=== PATIENT | female | born 1950 | race Caucasian/White ===

== ENCOUNTER → 2019-06-25 08:47 | Outpatient (BNVA) | payer MEDICARE, OTHER, SELFPAY | PROVIDERS: Family Provider Family Medicine; PCP Family Medicine; Visit Provider Otolaryngology | DX: J32.9 Chronic sinusitis, unspecified (principal); R09.82 Postnasal drip; J34.2 Deviated nasal septum; R49.0 Dysphonia; J38.1 Polyp of vocal cord and larynx | CPT/HCPCS: 96372; 99214; J3301 ==

== ENCOUNTER → 2020-03-04 08:23 | Outpatient (BNVA) | payer MEDICARE, OTHER, SELFPAY | PROVIDERS: Family Provider Family Medicine; PCP Family Medicine; Referring Provider Dermatology; Visit Provider Dermatology | DX: Z12.83 Encounter for screening for malignant neoplasm of skin (principal); L57.0 Actinic keratosis; B35.1 Tinea unguium; D18.01 Hemangioma of skin and subcutaneous tissue; I83.93 Asymptomatic varicose veins of bilateral lower extremities; L91.8 Other hypertrophic disorders of the skin; H02.009 Unspecified entropion of unspecified eye, unspecified eyelid | CPT/HCPCS: 17000; 17003; 99203 ==

== ENCOUNTER 2020-04-03 09:13 | Emergency (ER) | payer MEDICARE, OTHER, SELFPAY ==
[2020-04-03 09:29] VITALS: BP 135/72; PULSE 91; RESP 16; TEMP 36.8; O2SAT 99; BMI 21.1
[2020-04-03 09:46] VITALS: BP 135/72; PULSE 93; PULSE 97; RESP 18; O2SAT 98
--- NOTE | 2020-04-03 09:56 | ED_ITS ---
HPI - Extremity Problem General: Chief complaint: Extremity Injury, Upper Stated complaint: Pain in left arm History of Present Illness: HPI Narrative: 69 old female left elbow pain lateral epicondyle. She hurt it she thinks about 3 weeks ago but she is not entirely sure his finger and progressively worse radiates to her hand.. Worsens with use radiates down to the hand. No radiation proximal. There is no injury that she can recall. Associated symptoms: Deny chest pain, fever(s) or rash Review of Systems Const: Denies: fever(s), chills, body aches, change in appetite, fatigue or malaise ENMT: Denies: throat pain, ear or mastoid pain, nasal discharge or nasal congestion Card: Denies: chest pain, edema, dyspnea on exertion or orthopnea Resp: Denies: dyspnea, productive cough or non-productive cough GI: Denies: abdominal pain, nausea, vomiting, hematemesis, coffee ground e mesis, diarrhea, constipation, bloating, hematochezia or melena : Denies: flank pain, difficulty voiding, dysuria, urinary frequency or urinary urgency Skin/Breast: Denies: rash or pruritus PFSH ED PFSH: Family History Mother Diabetes Other CHF (congestive heart failure), NYHA class I Dementia Social History Smoking and tobacco status: never smoked Alcohol intake: never Physical Exam Const: COMMON NORMALS: no acute distress GENERAL APPEARANCE: cooperative and comfortable ORIENTATION/CONSCIOUSNESS: Yes awake, Yes oriented to person, Yes oriented to place and Yes oriented to time HENMT: COMMON NORMALS: normocephalic, atraumatic and hearing grossly normal bilaterally HEAD & SCALP: normocephalic and atraumatic Neck/C-Spine: COMMON NORMALS: no JVD Cardio: COMMON NORMALS: no JVD, regular rate, regular rhythm and No murmurs present (Cardio) RATE: regular rate RHYTHM: regular rhythm Extremity: COMMON NORMALS: normal to inspection, capillary refill normal, no clubbing, cyanosis or edema, no calf tenderness and no pedal edema NARRATIVE EXTREMITY EXAM: Exquisite tenderness at the left lateral epicondyle. X-ray of the elbow is negative. 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 Neuro: SENSORIUM/ORIENTATION: Yes oriented to person, Yes oriented to place and Yes oriented to time Skin: COMMON NORMALS: no rashes or lesions noted GENERAL SKIN EXAM: no rashes or lesions noted Course Vital Signs: Vital signs: Vital Signs Temperature 97.6 F 04/03/20 11:35 Pulse Rate 79 04/03/20 11:35 Respiratory Rate 18 04/03/20 11:35 Blood Pressure 109/84 04/03/20 11:35 Pulse Oximetry 96 04/03/20 11:35 MDM - Extremity (Nontraumatic) MDM Narrative: Medical decision making narrative: Tennis elbow forearm band, anti-inflammatories ice avoid exacerbating injuries recheck in 1 week if not improving sooner if worsens Discharge Plan Discharge Patient Disposition: Home Clinical Impression: Epicondylitis, lateral, left Condition: Stable Prescriptions: New diclofenac sodium 75 mg tablet,delayed release (DR/EC) 75 mg PO Q12H PRN (Reason: pain) Qty: 20 RF: 0 No Action cyclobenzaprine 10 mg tablet 10 mg PO TID RF: 0 sertraline 50 mg tablet 50 mg PO Q24H RF: 0 fluticasone propionate 50 mcg/actuation spray,suspension 1 spray INTRANASAL BID RF: 0 cetirizine 10 mg tablet 5 mg PO DAILY RF: 0 multivitamin Tablet 1 tab PO QAM RF: 0 aspirin [Adult Low Dose Aspirin] 81 mg tablet,delayed release (DR/EC) 81 mg PO DAILY RF: 0 trazodone 100 mg tablet 100 mg PO .at bedtime RF: 0 ropinirole 0.5 mg tablet 0.5 mg PO BID RF: 0 simvastatin 20 mg tablet 20 mg PO .at bedtime RF: 0 Discharge Orders: Discharge Order (Routine); Ordered 04/03/20 Ordered By: Bacilio Ga Referrals: Axel Allan MD [Primary Care Provider] - Discharge Diet: Usual diet Discharge Activity: Increase activity as tolerated Activity Restrictions/Additional Instructions: Tennis elbow band to the left forearm wear while awake may take off at night. Follow-up with your doctor within 1 week. Discharge Date/Time: 04/03/20 11:37 Coding Level of Care Code ED Calender Roll Operator for Ritika Silveira
--- NOTE | 2020-04-03 09:56 | XRR_ITS ---
PROCEDURE INFORMATION: Exam: XR Left Elbow Exam date and time: 04/03/2020 9:56 AM Age: 69 years old Clinical indication: Pain; Elbow; Left TECHNIQUE: Imaging protocol: XR Left elbow. Views: 3 or more views. COMPARISON: No relevant prior studies available. FINDINGS: Bones/joints: Mild degenerative disease is present with tiny osteophyte formation on the proximal ulna. The joint spaces are not significantly narrowed. There is no fracture or other acute abnormality. Soft tissues: Normal. XR/XR elbow LT min 3V* [id number] IMPRESSION: Mild degenerative disease. No acute abnormality.
[2020-04-03 11:35] VITALS: BP 109/84; PULSE 79; RESP 18; TEMP 36.4; O2SAT 96
== END 2020-04-03 11:37 | disposition home or self-care (01) ==
PROVIDERS: Emergency Provider Family Medicine; PCP Family Medicine
DX: M77.12 Lateral epicondylitis, left elbow (principal); Z79.82 Long term (current) use of aspirin
CPT/HCPCS: 12345; 73080; 99281; 99282

== ENCOUNTER 2020-08-05 07:53 | Emergency (ER) | payer MEDICARE, OTHER, SELFPAY ==
[2020-08-05 07:55] VITALS: BP 126/77; PULSE 70; RESP 16; TEMP 36.4; O2SAT 98; BMI 21.1
[2020-08-05 08:04] VITALS: PULSE 86; RESP 14; O2SAT 100
--- NOTE | 2020-08-05 08:05 | ECG_ITS ---
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 Measurements Intervals [place] Rate: 64 P: 38 [place]: 144 QRS: 1 QRSD: 92 T: 44 QT: 386 QTc: 401 Interpretive Statements SINUS RHYTHM NONSPECIFIC T-WAVE ABNORMALITY No previous ECG available for comparison Electronically Signed On 08-05-2020 20:05:41 INCOME TAX RETURN PREPARER by Riley Lozoya M.D. [id number]
--- NOTE | 2020-08-05 08:08 | W.ED.SYNCOPE ---
HPI - Syncope General: Chief Complaint: Syncope Stated Complaint: SYNCOPAL EPISODE/ ABDOMINAL PAIN Time Seen by Provider: 08/05/20 07:54 History of Present Illness: HPI narrative: Patient is a 69-year-old female that presents via EMS for syncopal episode. Patient states that she was waiting for her to have an MRI completed when she started not feeling well, stating she had some belly pain and just did not feel right so she tried to walk out of the building to her vehicle when she states that her vision became narrowed and she feels like she passed out. She states she did fall to the ground. She is unsure if she hit her head but does not complain of a headache. She denies any musculoskeletal symptoms from the fall. She does states she has been dealing with some on and off abdominal pain for the past couple weeks. She states she feels like her stools have been darker for the last 4 days. She denies any history of GI bleed. She states she had a colonoscopy several years ago that was essentially normal. She does not take blood thinners. She denies any focal or visual deficits during examination. She denies any chest pain or shortness of breath during the syncopal episode. MD complaint: felt faint and collapsed Injuries sustained associated with event: none Associated symptoms: Reports abdominal pain; Deny chest pain, fever(s), headache(s), lightheadedness or nausea Review of Systems General: Reports: 10 or more systems reviewed and unremarkable except in HPI and below Const: Denies: fever(s) Eyes: Denies: blurry vision ENMT: Denies: nasal congestion Card: Reports: syncope; Denies: chest pain or lightheadedness Resp: Denies: dyspnea or productive cough GI: Reports: abdominal pain and change in bowel habits (Dark stools); Denies: nausea : Denies: dysuria or hematuria Musc: Denies: neck pain or back pain Skin/Breast: Denies: rash or new lesions Neuro: Denies: headache(s) Psych: Denies: anxiety Rodo/Lymph: Denies: easy bleeding, petechiae or purpura PFSH ED PFSH: Family History Mother Diabetes Other CHF (congestive heart failure), NYHA class I Dementia Social History Smoking and tobacco status: never smoked Alcohol intake: never Physical Exam Const: COMMON NORMALS: no acute distress, patient oriented x3, alert and well nourished HENMT: COMMON NORMALS: normocephalic, atraumatic, EAC's normal, TM's normal bilaterally and Normal external nose present HEAD & SCALP: normocephalic and atraumatic FACE & SINUS: normal facial exam and face symmetric NOSE: Normal external nose present EXTERNAL AUDITORY CANAL: EAC's normal TYMPANIC MEMBRANE: TM's normal bilaterally MOUTH: Normal oral and palatal mucosa present and moist mucous membranes abnormal Eye: COMMON NORMALS: Equal, round and reactive pupils present PUPIL: Yes Equal, round and reactive pupils present Neck/C-Spine: GENERAL: Yes normal visual inspection Chest: COMMONS NORMALS: normal inspection of the chest Resp: COMMON NORMALS: normal respiratory effort, No retractions, No use of accessory muscles and clear to auscultation bilaterally AUSCULTATION: clear to auscultation bilaterally Cardio: COMMON NORMALS: regular rate, regular rhythm, S1 normal heart sound present, S2 normal heart sound present and No murmurs present (Cardio) RATE: regular rate RHYTHM: regular rhythm HEART SOUNDS: S1 normal heart sound present and S2 normal heart sound present GI: COMMON NORMALS: Soft to palpation and No hepatosplenomegaly present INSPECTION: Yes normal to inspection AUSCULTATION: Yes normoactive bowel sounds PALPATION: Yes Soft to palpation and Yes No hepatosplenomegaly present RECTAL EXAM: deferred, visual inspection normal and No heme positive stool : COMMON NORMALS: Yes no CVA tenderness BLADDER/KIDNEY EXAM: Yes no CVA tenderness Back/Pelvis: COMMON NORMALS: no CVA tenderness Neuro: COMMON NORMALS: patient oriented x3 and moves all extremities SENSORIUM/ORIENTATION: Yes alert CRANIAL NERVES: Yes CN normal except as noted SPEECH: speech normal GAIT: Yes Normal gait present MOTOR EXAM: 5/5 motor strength present throughout Psych: COMMON NORMALS: mental status grossly normal Skin: COMMON NORMALS: no rashes or lesions noted GENERAL SKIN EXAM: no rashes or lesions noted Course Vital Signs: Vital signs: Vital Signs Temperature 97.6 F 08/05/20 07:55 Pulse Rate 63 08/05/20 10:02 Respiratory Rate 16 08/05/20 10:02 Blood Pressure 117/71 08/05/20 10:02 Pulse Oximetry 98 08/05/20 10:02 MDM - Syncope MDM Narrative: Medical decision making narrative: Patient remained stable in the ED. Her lab work, EKG and imaging are unremarkable. Her orthostatics are negative. Patient's stool guaiac is negative. Her abdominal exam is benign without guarding or tenderness. She has no focal neurological findings on exam. She feels well on reevaluation. She has been able to ambulate and walk without difficulty in the ED. Discussed with her that there does not appear to be an obvious cause of her syncopal episode. I would advise that she follow-up closely with her primary care doctor for Holter monitor for additional evaluation. We discussed that should her symptoms return or if she develops any new symptoms that she needs to return to the ED for additional evaluation at that time. She voiced understanding is agreeable to the plan of care. Lab Data: Labs: Lab Results 08/05/20 08/05/20 08/05/20 Range/Units 07:45 07:45 07:45 WBC 5.4 (4.0-10.0) 10^3/ uL RBC 4.02 L (4.1-5.3) 10^6/u L Hgb 12.4 (11.5-15.3) g/dL Hct 38.7 (37.0-47.0) % MCV 96.3 (81-99) fL MCH 30.8 (28.0-34.0) pg MCHC 32.0 (30.0-36.0) g/dL RDW 12.4 (12.1-15.1) % Plt Count 293 (130-400) 10^3/c mm MPV 10.6 H (7.4-10.4) fL Neut % (Auto) 65.1 % Lymph % (Auto) 23.6 % [place] % (Auto) 7.2 % Eos % (Auto) 3.0 % Baso % (Auto) 0.7 % Neut # (Auto) 3.50 (1.8-7.7) 10^3/u L Lymph # (Auto) 1.3 (0.8-4.8) 10^3/u L [place] # (Auto) 0.4 (0.2-0.9) 10^3/u L Eos # (Auto) 0.2 (0.0-0.8) 10^3/u L Baso # (Auto) 0.0 (0.0-0.1) 10^3/u L Nucleated RBC % (a uto) 0 % Nucleated RBCs # 0.0 /100WBC Sodium 139 (136-145) mmol/L Potassium 4.0 (3.5-5.1) mmol/L Chloride 105 (98-107) mmol/L Carbon Dioxide 29 (22-29) mmol/L Anion Gap 9.0 (5-19) BUN 15 (8-23) mg/dL Creatinine 0.9 (0.5-0.9) mg/dL GFR Calculation 61.9 L (90-130) mL/min Glucose 113 (65-115) mg/dL Calculated Osmolal ity 290 (285-295) mOsm/k g Calcium 9.2 (8.5-10.5) mg/dL Troponin T Gen 5 n g/L 6 (0-10) ng/L Discharge Plan Discharge Patient Disposition: Home Clinical Impression: Syncope Qualifiers: Syncope type: unspecified Qualified Code(s): R55 - Syncope and collapse Condition: Good Prescriptions: No Action cyclobenzaprine 10 mg tablet 10 mg PO TID RF: 0 sertraline 50 mg tablet 50 mg PO Q24H RF: 0 fluticasone propionate 50 mcg/actuation spray,suspension 1 spray INTRANASAL BID RF: 0 cetirizine 10 mg tablet 5 mg PO DAILY RF: 0 multivitamin Tablet 1 tab PO QAM RF: 0 aspirin [Adult Low Dose Aspirin] 81 mg tablet,delayed release (DR/EC) 81 mg PO DAILY RF: 0 trazodone 100 mg tablet 100 mg PO .at bedtime RF: 0 ropinirole 0.5 mg tablet 0.5 mg PO BID RF: 0 simvastatin 20 mg tablet 20 mg PO .at bedtime RF: 0 diclofenac sodium 75 mg tablet,delayed release (DR/EC) 75 mg PO Q12H PRN (Reason: pain) Qty: 20 RF: 0 Discharge Orders: Discharge ED (Routine); Ordered 08/05/20 Ordered By: August Corcoran Referrals: Axel Allan MD [Primary Care Provider] - Discharge Diet: Usual diet Discharge Activity: Limit activity as instructed Activity Restrictions/Additional Instructions: Go home and take it easy for the rest of the day. Follow-up with your primary care doctor in the next week. I think you need additional evaluation with a Holter monitor. Make sure you are drinking plenty of fluids. Return to the ED if your symptoms return or if you develop new symptoms. Coding Level of Care Code ED Wagon Winder for Ritika Fwmatthew Exam Comprehensive
--- NOTE | 2020-08-05 08:10 | PC.NURSE ---
Guaiac performed at bedside by Dr Corcoran and was negative.
[2020-08-05 08:13] VITALS: BP 114/65; BP 120/77; BP 123/71; PULSE 70; PULSE 71
--- NOTE | 2020-08-05 08:14 | CT_ITS ---
WS: [id number] CT HEAD TECHNIQUE: Noncontrast CT of the head obtained from the skullbase to the vertex. CLINICAL INFORMATION: syncope/fall COMPARISON: None. DLP: 718.[address] scans at [facility] use at least one of these dose optimization techniques: automat ed exposure control; mA and/or kV adjustment per patient size (includes targeted exams where dose is matched to clinical indication); or iterative reconstruction. FINDINGS: No evidence of intracranial hemorrhage or mass effect. Ventricular system and basal cisterns are mckeon nt. Mild small vessel changes with mild loss parenchymal volume loss. No extra-axial fluid collection s. No evidence of mass or mass effect. Normal rodriguez-white differentiation. Mucosal thickening right mastoid air cells. Dystrophic calcification along the anterior falx. CT/CT head wo con* [id number] IMPRESSION: 1. No evidence of intracranial hemorrhage or mass effect. 2. Mild small vessel changes. Mild parenchymal volume loss. 3. No acute intracranial findings.
[2020-08-05 08:15] LABS: Basophils % 0.7 %; Eosinophils # 0.2 10^3/uL (0.0-0.8); Hematocrit 38.7 % (37.0-47.0); Hemoglobin 12.4 g/dL (11.5-15.3); Lymphocytes # 1.3 10^3/uL (0.8-4.8); Lymphocytes % 23.6 %; Mean Corpuscular Hemoglobin 30.8 pg (28.0-34.0); Mean Corpuscular Volume 96.3 fL (81-99); Mean Platelet Volume 10.6 fL (7.4-10.4); Monocytes # 0.4 10^3/uL (0.2-0.9); Monocytes % 7.2 %; Neutrophils % 65.1 %; Nucleated Red Blood Cells % 0 %; Platelet Count 293 10^3/cmm (130-400); Red Blood Count 4.02 10^6/uL (4.1-5.3); Red Cell Distribution Width 12.4 % (12.1-15.1); White Blood Count 5.4 10^3/uL (4.0-10.0)
[2020-08-05] MEDS: sodium chloride 0.9% 1,000 ML 999 ML IV (08:17)
[2020-08-05 08:31] LABS: Blood Urea Nitrogen 15 mg/dL (8-23); Calcium 9.2 mg/dL (8.5-10.5); Carbon Dioxide 29 mmol/L (22-29); Chloride 105 mmol/L (98-107); Glomerular Filtration Rate 61.9 mL/min (90-130); Glucose 113 mg/dL (65-115); Osmolality Calculated 290 mOsm/kg (285-295); Sodium 139 mmol/L (136-145)
[2020-08-05 08:33] LABS: Troponin T (5th) Once 6 ng/L (0-10)
[2020-08-05 10:02] VITALS: BP 117/71; PULSE 63; RESP 16; O2SAT 98
== END 2020-08-05 10:02 | disposition home or self-care (01) ==
PROVIDERS: Emergency Provider Emergency Medicine; PCP Family Medicine
DX: R55 Syncope and collapse (principal); Z79.82 Long term (current) use of aspirin
CPT/HCPCS: 70450; 80048; 84484; 85025; 93005; 96360; 99283; J7030

== ENCOUNTER 2020-08-26 11:25 | Outpatient (CLI) | payer MEDICARE, OTHER, SELFPAY ==
--- NOTE | 2020-08-26 11:53 | CT_ITS ---
WS: [id number] CT scan of the abdomen and pelvis with Oral and IV contrast. Additional two-dimensional coronal and s agittal reconstruction was performed. 08/26/2020 Clinical Data: PELVIC PAIN, ABDOMINAL PAIN, RIGHT UPPER QUADRANT Comparison: None. DLP: 697.[address] scans at [facility] use at least one of these dose optimization techniques: automat ed exposure control; mA and/or kV adjustment per patient size (includes targeted exams where dose is matched to clinical indication); or iterative reconstruction. Findings: The lower lungs show no nodules, masses or effusions. The liver, gallbladder, spleen, adrenal glands and pancreas are normal. The kidneys show equal bilateral contrast excretion with a left renal cyst. No hydronephrosis, masses or renal calculi are seen. The abdominal aorta is normal in size with minimal calcification in the wall. No appendicitis or diverticulitis is seen. There are numerous diverticula of the descending and sigmo id colons. Oral contrast is in the stomach, small bowel and colon and there is no bowel dilatation. No abscess, adenopathy, ascites, mass, obstruction or free air is seen. The bladder is unremarkable. The uterus is absent. There is an adnexal cyst adjacent to the right pel celina wall measuring 3.17 cm. No inguinal hernia is seen. The bones of the lower thorax, lumbar spine, pelvis, and hips show minimal osteoarthritis of the lumb ar vertebral bodies.. CT/CT abdomen pelvis w con* [id number] Impression: 1. Negative for acute intra-abdominal or pelvic abnormalities. 2. Right Adnexal cyst.
--- NOTE | 2020-08-26 11:55 | XR_ITS ---
WS: [id number] Right leg including the tibia and fibula, AP and lateral views, 08/26/2020 Clinical Data: LEG PAIN, RIGHT Comparison: None. Findings: No fractures or dislocations are seen. The tibia and fibula are intact. The soft tissues are normal. The visualized right knee and right ankle are unremarkable. There is a plantar spur. XR/XR tibia fibula RT 2V [id number] Impression: Negative for fracture.
--- NOTE | 2020-08-26 11:55 | XR_ITS ---
WS: [id number] Chest 2 views, 08/26/2020 Clinical Data: CHEST PAIN Comparison: PA and lateral chest, 05/14/2014. Findings: No nodules, masses or effusions are seen. The heart is normal. The pulmonary vascularity is not increased. No pneumonia or pneumothorax is seen. The aortic arch and descending aorta are minima lly tortuous. There is a dextroscoliosis of the thoracic spine. XR/XR chest 2V* [id number] Impression: Atherosclerosis.
[2020-08-26] MEDS: iohexol 300 mg/mL 100 mL Btl IV (13:50)
[2020-08-26] MEDS: iohexol 300 mg/mL 50 mL Btl PO (13:52)
== END 2020-08-26 11:26 | disposition home or self-care (01) ==
PROVIDERS: PCP Family Medicine; Visit Provider Family Medicine
DX: R10.2 Pelvic and perineal pain (principal); R10.11 Right upper quadrant pain; M79.604 Pain in right leg; I70.90 Unspecified atherosclerosis
CPT/HCPCS: 71046; 73590; 74177; Q9967

== ENCOUNTER → 2020-09-07 09:11 | Outpatient (BNVA) | payer MEDICARE, OTHER, SELFPAY | PROVIDERS: PCP Family Medicine; Referring Provider Family Medicine; Visit Provider Anesthesiology Pain Medicine | DX: M54.2 Cervicalgia (principal); M54.9 Dorsalgia, unspecified; M47.816 Spondylosis without myelopathy or radiculopathy, lumbar region; M54.16 Radiculopathy, lumbar region; M51.36 Other intervertebral disc degeneration, lumbar region | CPT/HCPCS: 99205 ==

== ENCOUNTER → 2020-09-14 13:39 | Outpatient (BNVA) | payer MEDICARE, OTHER, SELFPAY | PROVIDERS: PCP Family Medicine; Visit Provider Anesthesiology Pain Medicine | DX: M47.812 Spondylosis without myelopathy or radiculopathy, cervical region (principal) | CPT/HCPCS: 64490; 64491; 64492; J3490 ==

== ENCOUNTER 2020-09-24 08:06 | Outpatient (CLI) | payer MEDICARE, OTHER, SELFPAY ==
--- NOTE | 2020-09-24 08:14 | US_ITS ---
WS: [id number] TRANSABDOMINAL PELVIC AND TRANSVAGINAL PELVIC ULTRASOUND HISTORY: UNSPECIFIED OVARIAN CYST,R SIDE COMPARISON: 01/25/2016 Status post hysterectomy. Uterus is been removed. No suspicious cystic mass in the RIGHT adnexa which measures 2.6 x 2.7 x 3.1 cm. There is through transmission. There is a small amount of calcium withi n the wall of this cyst. No LEFT adnexal mass. No free fluid. US/US pelvic with transvaginal IMPRESSION: Simple cyst with a focal calcification in the right adnexa is almost certainly benign, but should be followed yearly with ultrasound in a late post-menopausal woman. Recommend pelvic ultrasound in 12 months. A lesion is seen in the right adnexa measuring 3.1 cm with appearance consistent with simple cyst with a foc al calcification. Recommendations for adnexal cyst follow-up per Society of Radiologists in Ultra sound 2009 consensus statement on management of asymptomatic and ovarian and ot her adnexal cysts (Hou et al., Radiology 2010 256: 943-54).
== END 2020-09-24 08:07 | disposition home or self-care (01) ==
LOC: RAD 08:11
PROVIDERS: PCP Family Medicine; Visit Provider Family Medicine
DX: N83.201 Unspecified ovarian cyst, right side (principal)
CPT/HCPCS: 76830; 76856

== ENCOUNTER → 2020-09-28 13:41 | Outpatient (BNVA) | payer MEDICARE, OTHER, SELFPAY | PROVIDERS: PCP Family Medicine; Visit Provider Anesthesiology Pain Medicine | DX: M47.812 Spondylosis without myelopathy or radiculopathy, cervical region (principal) | CPT/HCPCS: 64490; 64491; 64492; J3490 ==

== ENCOUNTER → 2020-10-07 14:06 | Outpatient (BNVA) | payer MEDICARE, OTHER, SELFPAY | PROVIDERS: PCP Family Medicine; Visit Provider Anesthesiology Pain Medicine | DX: M54.2 Cervicalgia (principal); M54.9 Dorsalgia, unspecified; M47.816 Spondylosis without myelopathy or radiculopathy, lumbar region; M54.16 Radiculopathy, lumbar region; M51.36 Other intervertebral disc degeneration, lumbar region; M79.604 Pain in right leg | CPT/HCPCS: 99214 ==

== ENCOUNTER → 2020-11-18 13:19 | Outpatient (BNVA) | payer MEDICARE, OTHER, SELFPAY | PROVIDERS: PCP Family Medicine; Referring Provider Dermatology; Visit Provider Podiatrist Foot & Ankle Surgery | DX: M21.612 Bunion of left foot (principal); M21.611 Bunion of right foot; M79.672 Pain in left foot; M79.671 Pain in right foot | CPT/HCPCS: 77077 ==

== ENCOUNTER 2020-11-22 10:18 | Outpatient (CLI) | payer MEDICARE, OTHER, SELFPAY ==
--- NOTE | 2020-11-22 10:23 | MM_ITS ---
WS: [id number] BILATERAL SCREENING DIGITAL MAMMOGRAM WITH CAD HISTORY: SCREENING COMPARISON: 11/08/2017 and 01/10/2016 Bilateral CC and MLO views submitted. Computer aided detection analyzed. Breast composition: There are scattered areas of fibroglandular density. No suspicious masses, microc alcifications or architectural distortion. Benign calcifications and vascular calcifications. MM/[place] [id number] IMPRESSION: BI-RADS: 2-Benign FOLLOW UP: 1 Year Follow-up
== END 2020-11-22 10:19 | disposition home or self-care (01) ==
LOC: RADSHAW 10:21
PROVIDERS: PCP Family Medicine; Visit Provider Family Medicine
DX: Z12.31 Encounter for screening mammogram for malignant neoplasm of breast (principal)
CPT/HCPCS: 77067

== ENCOUNTER → 2020-11-30 13:28 | Outpatient (BNVA) | payer MEDICARE, OTHER, SELFPAY | PROVIDERS: PCP Family Medicine; Visit Provider Anesthesiology Pain Medicine | DX: G89.29 Other chronic pain (principal); M47.812 Spondylosis without myelopathy or radiculopathy, cervical region; M51.36 Other intervertebral disc degeneration, lumbar region | CPT/HCPCS: 64633; 64634; J1030 ==

== ENCOUNTER → 2020-12-14 13:15 | Outpatient (BNVA) | payer MEDICARE, OTHER, SELFPAY | PROVIDERS: PCP Family Medicine; Visit Provider Anesthesiology Pain Medicine | DX: G89.29 Other chronic pain (principal); M47.812 Spondylosis without myelopathy or radiculopathy, cervical region; Z79.891 Long term (current) use of opiate analgesic | CPT/HCPCS: 64633; 64634; J1030 ==

== ENCOUNTER → 2020-12-28 10:51 | Outpatient (BNVA) | payer MEDICARE, OTHER, SELFPAY | PROVIDERS: PCP Family Medicine; Visit Provider Anesthesiology Pain Medicine | DX: G89.29 Other chronic pain (principal); M54.2 Cervicalgia; M47.816 Spondylosis without myelopathy or radiculopathy, lumbar region; M54.16 Radiculopathy, lumbar region; M51.36 Other intervertebral disc degeneration, lumbar region; M79.604 Pain in right leg; Z79.891 Long term (current) use of opiate analgesic | CPT/HCPCS: 99213 ==

== ENCOUNTER 2021-01-04 08:25 | Outpatient (CLI) | payer MEDICARE, OTHER, SELFPAY ==
--- NOTE | 2021-01-04 09:30 | USCV_ITS ---
Patricia Villavicencio Age: 70 Gender: F : 1950 Exam Date: 01/04/2021 08:14 Ordering Phys: Yrn Wong DPM Technologist: Lauren Richards Exam Location: [facility] [place] Indication: Decreased pedal pulses RIGHT LEFT Brachial 126.00 mmHg Brachial 129.00 mmHg Pressure (mmHg) Waveform Pressure (mmHg) Waveform 139.00 Above Knee 139.00 149.00 Below Knee 147.00 152.00 COOK BARBECUE 153.00 150.00 DPA 149.00 1.18 Ankle/Brachial Index 1.19 133.00 Pre-Exercise Toe Pressure 113.00 Pre-Exercise Toe/Brachial Index 0.88 1.03 FINDINGS Normal resting ABIs bilaterally Normal resting TBIs bilaterally PVR waveforms showing minimal blunting of the dicrotic notch . CONCLUSIONS No evidence of any significant arterial obstruction, based on the above findings. Dr Riley Lozoya MD [facility] (Electronically Signed) Final Date: 04 January 2021 14:00 S
== END 2021-01-04 08:26 | disposition home or self-care (01) ==
LOC: US 08:26
PROVIDERS: PCP Family Medicine; Visit Provider Podiatrist Foot & Ankle Surgery
DX: R09.89 Other specified symptoms and signs involving the circulatory and respiratory systems (principal)
CPT/HCPCS: 93923

== ENCOUNTER → 2021-03-29 11:16 | Outpatient (BNVA) | payer MEDICARE, OTHER, SELFPAY | PROVIDERS: PCP Family Medicine; Visit Provider Anesthesiology Pain Medicine | DX: G89.29 Other chronic pain (principal); M79.18 Myalgia, other site; M54.2 Cervicalgia; M47.816 Spondylosis without myelopathy or radiculopathy, lumbar region; M54.16 Radiculopathy, lumbar region; M51.36 Other intervertebral disc degeneration, lumbar region; M79.604 Pain in right leg | CPT/HCPCS: 20553; 99213; J1030; J3490 ==

== ENCOUNTER 2021-04-11 07:53 | Outpatient (CLI) | payer MEDICARE, OTHER, SELFPAY ==
--- NOTE | 2021-04-11 08:00 | USCV_ITS ---
Eva Villavicencio Age: 70 Gender: F : 1950 Exam Date: 04/11/2021 08:17 Ordering Phys: Pavithra Cosme MD ([email or web address]) Technologist: FERNANDEZ Exam Location: [facility] [place] Indication: SYNCOPE AND COLLAPSE BP: 122 / 71 HR: 78 Rhythm: Sinus Technical Quality: Adequate MEASUREMENTS (Male / Female) Normal Values 2D ECHO LV Diastolic Diameter PLAX 4.4 cm 4.2 - 5.9 / 3.9 - 5.3 cm LV Systolic Diameter PLAX 2.5 cm IVS Diastolic Thickness 1.1 cm 0.6 - 1.0 / 0.6 - 0.9 cm IVS Systolic Thickness 1.6 cm LVPW Diastolic Thickness 0.8 cm 0.6 - 1.0 / 0.6 - 0.9 cm LVPW Systolic Thickness 1.3 cm LVOT Diameter 2.0 cm LV Ejection Fraction 2D Teich 72.7 % LV Ejection Fraction MOD 2C 62.5 % LV Ejection Fraction 2C AL 66.0 % LA Diameter 2.2 cm LA Width 3.0 cm LA Height 2.6 cm RA Width 2.5 cm RA Height 2.6 cm Aorta at Sinotubular Diameter 2.3 cm DOPPLER AV Peak Velocity 133.0 cm/s LVOT Peak Velocity 90.0 cm/s AV Area Cont Eq vti 2.1 cm squared AV Area Cont Eq pk 2.1 cm squared MV Area PHT 5.0 cm squared Mitral E to A Ratio 1.1 MV E' Velocity 47.5 cm/s Mitral E to MV E' Ratio 6.7 Mitral E to LV E' Lateral Ratio 6.7 Mitral E to LV E' Septal Ratio 6.8 TR Peak Velocity 229.0 cm/s TR Peak Gradient 21.0 mmHg TV Peak E Velocity 46.0 cm/s Right Atrial Pressure 3.0 mmHg Pulmonary Artery Systolic Pressu 24.0 mmHg PV Peak Velocity 82.0 cm/s RV Acceleration Time 0.1 s RV Ejection Time 0.3 s RV AcT/ET 0.4 FINDINGS Left Ventricle Normal left ventricular size, systolic function and wall thickness, with no regional wall motion abnormalities. Left ventricular ejection fraction is estimated at 70 %. Normal diastolic function. Right Ventricle Normal right ventricular size and systolic function. Right ventricular systolic pressure 24 mmHg. Right Atrium Normal right atrial size. Right atrial pressure estimated at 3 mm Hg. Left Atrium Normal left atrial size. Mitral Valve Mildly thickened mitral valve. No mitral valve stenosis. No mitral valve regurgitation. Aortic Valve Structurally normal trileaflet aortic valve. No aortic valve stenosis. No aortic valve regurgitation. Tricuspid Valve Structurally normal tricuspid valve. No tricuspid valve stenosis. Trace to mild tricuspid valve regurgitation. Pulmonic Valve Structurally normal pulmonic valve. No pulmonary valve stenosis. Trace pulmonary valve regurgitation. Pericardium No pericardial effusion. Aorta Normal size aortic root and proximal ascending aorta. Normal sized inferior vena cava with normal respiratory variation. CONCLUSIONS 1. Normal left ventricular size, systolic function and wall thickness, with no regional wall motion abnormalities. Left ventricular ejection fraction is estimated at 70 %. Normal diastolic function. 2. Right atrial pressure estimated at 3 mm Hg. 3. Trace to mild tricuspid valve regurgitation. 4. Normal pulmonary artery pressure. 5. No prior similar studies to compare. Pavithra Cosme MD (Electronically Signed) Final Date: 13 April 2021 11:44 S
== END 2021-04-11 07:54 | disposition home or self-care (01) ==
PROVIDERS: PCP Family Medicine; Visit Provider Internal Medicine Cardiovascular Disease
DX: R55 Syncope and collapse (principal); I07.1 Rheumatic tricuspid insufficiency
CPT/HCPCS: 93306

== ENCOUNTER → 2021-06-28 10:42 | Outpatient (BNVA) | payer MEDICARE, OTHER, SELFPAY | PROVIDERS: PCP Family Medicine; Visit Provider Anesthesiology Pain Medicine | DX: G89.29 Other chronic pain (principal); M54.2 Cervicalgia; M47.816 Spondylosis without myelopathy or radiculopathy, lumbar region; M54.16 Radiculopathy, lumbar region; M51.36 Other intervertebral disc degeneration, lumbar region; M79.604 Pain in right leg; Z87.891 Personal history of nicotine dependence | CPT/HCPCS: 99213 ==

== ENCOUNTER → 2021-09-28 15:12 | Outpatient (BNVA) | payer MEDICARE, OTHER, SELFPAY | PROVIDERS: PCP Family Medicine; Visit Provider Internal Medicine Cardiovascular Disease | DX: R55 Syncope and collapse (principal); E78.5 Hyperlipidemia, unspecified; M51.36 Other intervertebral disc degeneration, lumbar region; M54.16 Radiculopathy, lumbar region; F41.9 Anxiety disorder, unspecified; Z87.891 Personal history of nicotine dependence; Z79.82 Long term (current) use of aspirin | CPT/HCPCS: 99213 ==

== ENCOUNTER 2021-10-12 09:23 | Outpatient (CLI) | payer MEDICARE, OTHER, SELFPAY ==
--- NOTE | 2021-10-12 09:31 | US_ITS ---
WS: [id number] TRANSABDOMINAL PELVIC AND TRANSVAGINAL PELVIC ULTRASOUND HISTORY: UNSPECIFIED OVARIAN CYST, RIGHT SIDE COMPARISON: None available. Prior hysterectomy. No midline mass. Right ovary: 3.9 cm x 3.2 cm x 3.5 cm. Cystic mass in the RIGHT adnexa is probably an ovarian cyst. V guille little adjacent ovarian tissue is evident. This cyst measures 3.5 x 2.9 x 3.4 cm. There is no inc reased vascularity. The adjacent ovary has normal vascularity but only a thin rim of ovarian tissue i s evident. Shadowing calcification from the posterior cyst. Left ovary: Not visualized. No free fluid. US/US pelvic with transvaginal IMPRESSION: 1. RIGHT ovarian cyst measures 3.5 x 2.9 x 3.4 cm. Again noted is a calcificat ion within the cyst which has been previously described and also seen by CT. Sl ight increase in size of the cystic mass with calcification in the RIGHT adnexa since 09/24/2020. Consider yearly transvaginal pelvic follow-up evaluation to abbi tripathi. 2. LEFT ovary not identified. Prior hysterectomy.
== END 2021-10-12 09:24 | disposition home or self-care (01) ==
LOC: RAD 09:26
PROVIDERS: PCP Family Medicine; Visit Provider Family Medicine
DX: N83.201 Unspecified ovarian cyst, right side (principal)
CPT/HCPCS: 76830; 76856

== ENCOUNTER → 2021-11-30 11:09 | Outpatient (BNVA) | payer MEDICARE, OTHER, SELFPAY | PROVIDERS: PCP Family Medicine; Referring Provider Family Medicine; Visit Provider Obstetrics & Gynecology | DX: N83.8 Other noninflammatory disorders of ovary, fallopian tube and broad ligament (principal) | CPT/HCPCS: 81500 ==

== ENCOUNTER 2022-01-03 06:26 | Day surgery (SDC) | payer MEDICARE, OTHER, SELFPAY ==
[2022-01-02 09:03] VITALS: BMI 16.7
[2022-01-03] VITALS (10 sets, daily range): BP systolic 108–125; BP diastolic 59–81; PULSE 60–79; RESP 12–27; TEMP 36.3–37.1; O2SAT 95–99
[2022-01-03] MEDS: acetaminophen 1,000 MG/100 ML PIGGYBACK 400 MG IV (07:09)
[2022-01-03] MEDS: sodium chloride 0.9% 1,000 ML 30 ML IV (07:10)
--- NOTE | 2022-01-03 07:10 | W.PM.OPSUD ---
Surgery/Procedure H&P Update DATE OF PROCEDURE: January 03, 2022 DATE H&P PERFORMED: 12/29/21 H&P UPDATE INFORMATION: I have reviewed H&P completed within last 30 days, I have examined patient prior to procedure and No changes to prior documentation PREOP DIAGNOSIS: ovarian mass PLANNED PROCEDURE: Operation Date: 01/03/22 08:00 Proposed Procedures p Laparoscopic Bilateral Salpingo Oophorectomy 83017,N83.8,Z80.41(Bilateral) - Trina Jacques MD Related Problem List Diagnoses (1) Ovarian mass:
[2022-01-03] MEDS: CELEcoxib 200 mg Capsule 400 MG PO (07:11)
[2022-01-03] MEDS: phenazopyridine 100 mg Tablet 200 MG PO (07:11)
[2022-01-03] MEDS: gabapentin 300 mg Capsule PO (07:11)
[2022-01-03] MEDS: ketorolac 30 mg/mL INJ IVP (07:11)
[2022-01-03 07:16] LABS: Basophils % 0.5 %; Eosinophils # 0.1 10^3/uL (0.0-0.8); Eosinophils % 1.5 %; Hemoglobin 13.9 g/dL (11.5-15.3); Lymphocytes # 1.3 10^3/uL (0.8-4.8); Lymphocytes % 16.4 %; Mean Corpuscular HGB Conc 32.3 g/dL (30.0-36.0); Mean Corpuscular Volume 95.8 fl (81-99); Mean Platelet Volume 10.5 fL (7.4-10.4); Monocytes # 0.5 10^3/uL (0.2-0.9); Monocytes % 5.9 %; Neutrophils # 6.17 10^3/uL (1.8-7.7); Neutrophils % 75.3 %; Nucleated Red Blood Cells % 0 %; Platelet Count 280 10^3/cmm (130-400); Red Blood Count 4.49 10^6/uL (4.1-5.3); Red Cell Distribution Width 13.3 % (12.1-15.1); White Blood Count 8.2 10^3/uL (4.0-10.0)
--- NOTE | 2022-01-03 07:22 | ANES.PREANE2 ---
Pre-Anesthetic Assessment Height/Weight: Height 1.7 m Weight 48.534 kg Temp Pulse Resp BP Pulse Ox 98.0 F 79 18 114/68 97 01/03/22 06:34 01/03/22 06:34 01/03/22 06:34 01/03/22 06:34 01/03/22 06:34 Preop Diagnosis: ovarian mass Operation Date: 01/03/22 08:00 Proposed Procedures p Laparoscopic Bilateral Salpingo Oophorectomy 37043,N83.8,Z80.41(Bilateral) - Trina Jacques MD Familial anesthetic complications: None Was Beta Dar taken within 24 hours: N/A Was Clonidine taken within 24 hours: N/A Last intake: Intake Last Liquid Date 01/02/22 Last Liquid Time 22:00 Last Solid Date 01/02/22 Last Solid Time 22:00 Social No alcohol and No tobacco former smoker Exam alert, oriented x 3, clear to auscultation bilaterally and regular rate & rhythm Airway Mallampati: Class I Dentition: other (missing teeth) Comments: Comments: dysphonia s/t emerald's edema (chronic) Metabolic Thyroid Disease Anesthetic Plan ASA status: 2 Anesthesia: General Risk of > 500 ml blood loss (7ml/kg in children): No Medications/Allergies Home Medications Medication Instructions Recorded Confirmed Last Taken Type aspirin 81 mg tablet,delayed 81 mg PO DAILY tab 06/20/19 01/02/22 12/30/21 History release (Adult Low Dose Aspirin) multivitamin 1 tab PO QAM 06/20/19 01/03/22 01/02/22 History ropinirole 0.5 mg tablet 0.5 mg PO BID 06/20/19 01/03/22 01/02/22 History sertraline 50 mg tablet 50 mg PO Q24H 06/20/19 01/03/22 01/02/22 History trazodone 100 mg tablet 100 mg PO .at bedtime tab 06/20/19 01/03/22 01/02/22 History ibuprofen 200 mg tablet 200 mg PO .1 day PRN tab 09/14/20 01/02/22 Unknown History metronidazole 0.75 % topical gel 1 applic TOPICAL BID g 09/28/21 01/03/22 01/02/22 History magnesium-potassium 40 mg-40 mg 40 cap PO DAILY 0701/03/22 01/02/22 History capsule omega 0-cmb-dlb-fish oil 60 mg-90 1 cap PO DAILY 12/29/21 01/03/22 01/02/22 History mg-500 mg capsule (Fish Oil) levothyroxine 50 mcg tablet 50 mcg PO DAILY 01/03/22 01/03/22 01/02/22 History Allergies Allergy/AdvReac Type Severity Reaction Status Date / Time No Known Allergies Allergy Verified 01/02/22 08:59 Current Medications Generic Name Dose Route Start Last Admin Trade Name Aicha PRN Reason Stop Dose Admin Sodium Chloride 1,000 mls @ 30 mls/hr 01/03/22 06:30 01/03/22 07:10 Sodium Chloride 0.9% IV 01/04/22 06:29 30 mls/hr .Q24H ARMANDO Administration PFSH Anesthesia Medical History (Updated 12/01/21 @ 21:33 by Trina Jacques MD) Anxiety Chronic sinusitis Dyslipidemia Hearing loss Insomnia No pertinent past medical history neghx: htn, dm, thyroid, dvt/pe PCP: Dr. Allan Surgical History History of eye surgery History of hysterectomy Family History (Updated 11/30/21 @ 10:03 by Lolly Blanca LPN) Mother Diabetes Hypertension Sister Ovarian cancer Other CHF (congestive heart failure), NYHA class I Dementia Denies family history of Cervical cancer Colon cancer Prostate cancer Heart disease Hyperlipidemia Breast cancer Bleeding disorder Uterine cancer Thyroid disease Stroke Data Anesthesia : 01/03/22 06:59 01/03/22 06:59 Short CBC 01/03/22 Range/Units 06:59 WBC 8.2 (4.0-10.0) 10^3/uL Hgb 13.9 (11.5-15.3) g/dL Hct 43.0 (37.0-47.0) % MCV 95.8 (81-99) fl Plt Count 280 (130-400) 10^3/cmm Neut % (Auto) 75.3 % Neut # (Auto) 6.17 (1.8-7.7) 10^3/uL Cardiac Studies: Echocardiogram 04/11/21 Cardiac Event Monitor 08/31/20
[2022-01-03 07:40] LABS: Anion Gap 12.8 (5-19); Blood Urea Nitrogen 19 mg/dL (8-23); Calcium 9.6 mg/dL (8.5-10.5); Carbon Dioxide 30 mmol/L (22-29); Chloride 102 mmol/L (98-107); Glucose 94 mg/dL (65-115); Osmolality Calculated 294 mOsm/kg (285-295); Potassium 3.8 mmol/L (3.5-5.1); Sodium 141 mmol/L (136-145)
[2022-01-03] MEDS: ceFAZolin 2,000 MG in sodium chloride 0.9% (plus) 50 ML 100 MG IV (08:43)
--- NOTE | 2022-01-03 10:41 | PM.OP ---
Operative Report Date of procedure: January 03, 2022 Pre-op diagnosis: Preop Diagnosis ovarian mass Post-op diagnosis: same Post-op findings: dense pelvic adhesions. Right ovarian cyst (simple appearing), normal left tube and ovary. Normal right tube Procedure done: laparoscopy with BSO, lysis of adhesions Specimens removed/disposition: bilateral fallopian tubes and ovaries to pathology Surgeon: Trina Jacques Anesthesia: General Estimated blood loss (mL): 25 IV fluids (mL): 1,100 Urine output (mL): 300 Complications: none Condition: stable Disposition: PACU Procedure: The patient was taken to the operating room where general anesthesia was administered and found to be adequate. She was prepped and draped in the normal sterile fashion in the dorsal lithotomy position in [facility]. A sponge stick was placed into the vagina. A Nielson catheter was placed. Attention was turned to the abdomen after the gloves were changed. A 5 mm supraumbilical incision was made and carried down to the underlying layer of fascia. Using the 5 mm trocar and the scope the trocar was placed under direct visualization. A 5mm port was placed under direct visualization on the left lower abdomen. A 12 mm port was placed on the right. The pelvis was visualized and found to have dense pelvic adhesions. The right tube and ovary were visualized and not involved in the adhesions. The right ovary was enlarged. I took the adhesions down until I was able to find the left tube and ovary. It appeared normal . Using the electric cautery I cauterized inferior to the mesosalpinx. I continue to cauterize until the tube and ovary were removed. They were placed in the pelvis and attention was turned to the right tube and ovary. Again I cauterized along the mesosalpinx until the specimen was freed. An Endobag was placed through the 12 mm port and the ovaries and tubes placed into the bag. The incision was extended slightly and the bag was removed. The pelvis was suction irrigated. There was excellent hemostasis. The trochars were removed under direct visualization and the abdomen desufflated. The sponge stick was removed as well as the Nielson catheter. Incisions were closed using 3-0 Vicryl and skin glue. The patient tolerated the procedure well. Sponge lap and needle counts were correct x3. Taken to the recovery room in stable condition.
--- NOTE | 2022-01-03 11:25 | PM.DCS ---
Discharge Providers Date of Admission: 01/03/22 Date of Discharge: January 03, 2022 Attending Provider at Discharge: Trina Jacques MD Primary Care Provider: Axel Allan MD Diagnoses at Discharge Discharge Diagnosis (1) Ovarian mass: Status: Acute Hospital Course Hospital Course The patient was admitted for surgery. She did well postoperatively and was ready for discharge. Physical Exam Urinary Catheter Management: Nielson: Cath Placed During This Visit: yes, but has since been removed by the nurse Urinary Catheter Date of Insertion: 01/03/22 Urinary Catheter Time of Insertion: 09:11 Date Urinary Catheter Removed: 01/03/22 Time Urinary Catheter Discontinued: 10:19 Discharge Data Studies Completed and Pending Pending at discharge Category Date Time Status ES surgery / GI images Routine Exams 01/03/22 08:08 Taken Retype for Patiets ABO/Rh Routine Lab 01/03/22 09:04 Ordered Urine Culture Routine Lab 01/03/22 09:14 Received Pathology: Surgical [PTH] Routine Pth 01/03/22 10:28 Ordered Laboratory Results WBC 8.2 10^3/uL (4.0-10.0) 01/03/22 06:59 RBC 4.49 10^6/uL (4.1-5.3) 01/03/22 06:59 Hgb 13.9 g/dL (11.5-15.3) 01/03/22 06:59 Hct 43.0 % (37.0-47.0) 01/03/22 06:59 MCV 95.8 fl (81-99) 01/03/22 06:59 MCH 31.0 pg (28.0-34.0) 01/03/22 06:59 MCHC 32.3 g/dL (30.0-36.0) 01/03/22 06:59 RDW 13.3 % (12.1-15.1) 01/03/22 06:59 Plt Count 280 10^3/cmm (130-400) 01/03/22 06:59 MPV 10.5 fL (7.4-10.4) H 01/03/22 06:59 Neut % (Auto) 75.3 % 01/03/22 06:59 Lymph % (Auto) 16.4 % 01/03/22 06:59 [place] % (Auto) 5.9 % 01/03/22 06:59 Eos % (Auto) 1.5 % 01/03/22 06:59 Baso % (Auto) 0.5 % 01/03/22 06:59 Neut # (Auto) 6.17 10^3/uL (1.8-7.7) 01/03/22 06:59 Lymph # (Auto) 1.3 10^3/uL (0.8-4.8) 01/03/22 06:59 [place] # (Auto) 0.5 10^3/uL (0.2-0.9) 01/03/22 06:59 Eos # (Auto) 0.1 10^3/uL (0.0-0.8) 01/03/22 06:59 Baso # (Auto) 0.0 10^3/uL (0.0-0.1) 01/03/22 06:59 Nucleated RBC % (auto) 0 % 01/03/22 06:59 Nucleated RBCs # 0.0 /100WBC 01/03/22 06:59 Sodium 141 mmol/L (136-145) 01/03/22 06:59 Potassium 3.8 mmol/L (3.5-5.1) 01/03/22 06:59 Chloride 102 mmol/L (98-107) 01/03/22 06:59 Carbon Dioxide 30 mmol/L (22-29) H 01/03/22 06:59 Anion Gap 12.8 (5-19) 01/03/22 06:59 BUN 19 mg/dL (8-23) 01/03/22 06:59 Creatinine 0.8 mg/dL (0.5-0.9) 01/03/22 06:59 GFR Calculation Not Reportable 01/03/22 06:59 Glucose 94 mg/dL (65-115) 01/03/22 06:59 Calculated Osmolality 294 mOsm/kg (285-295) 01/03/22 06:59 Calcium 9.6 mg/dL (8.5-10.5) 01/03/22 06:59 Blood Type O Positive 01/03/22 06:59 Rho(D) Type Positive 01/03/22 06:59 Antibody Screen Negative 01/03/22 06:59 Vitals Last Vital Signs Temp 98.8 F 01/03/22 11:23 Pulse 61 01/03/22 11:23 Resp 16 01/03/22 11:23 BP 110/81 01/03/22 11:23 Pulse Ox 95 01/03/22 11:23 Discharge Plan Discharge Patient Disposition: Home Condition: Stable Prescriptions: New hydrocodone-acetaminophen 5-325 mg tablet 1 tab PO Q6H Qty: 20 0RF Continued sertraline 50 mg tablet 50 mg PO Q24H 0RF multivitamin Tablet 1 tab PO QAM 0RF aspirin [Adult Low Dose Aspirin] 81 mg tablet,delayed release (DR/EC) 81 mg PO DAILY 0RF trazodone 100 mg tablet 100 mg PO .at bedtime 0RF ropinirole 0.5 mg tablet 0.5 mg PO BID 0RF ibuprofen 200 mg tablet 200 mg PO .1 day PRN (Reason: Pain) 0RF metronidazole 0.75 % gel 1 applic topical BID 0RF Rx Instructions: Apply thin amount to entire face twice daily omega 2-bke-dgr-fish oil [Fish Oil] 60-90-500 mg capsule 1 cap PO DAILY 0RF magnesium-potassium 40-40 mg capsule 40 cap PO DAILY 0RF levothyroxine 50 mcg tablet 50 mcg PO DAILY 0RF Discharge Orders: Discharge Order (Routine); Ordered 01/03/22 Ordered By: Trina Jacques Discharge Attestations Time Spent in Discharge Care*: less than 30 min Quality Metrics Clinical Quality Measures [ No reported AMI, CVA or VTE this stay] Coding Level of Care Code Acute Chg FW DC note Diagnoses Ovarian mass N83.8
[2022-01-03] MEDS: HYDROcodone-acetaminophen 5-325 mg Tablet 1 TAB PO (11:45)
[2022-01-03] MEDS: ondansetron 2 mg/ML SDV 2 mL 4 MG IVP (12:18)
--- NOTE | 2022-01-03 13:58 | ANE.PACU2 ---
Inpatient post-anesthesia follow up: Airway intact: Yes Vital signs: Temperature 98.8 F Pulse Rate 62 Respiratory Rate 18 Blood Pressure 125/73 Pulse Oximetry 95 Oxygen Delivery Me thod Room Air Oxygen Flow Rate 8 Fraction of Inspir ed Oxygen Hydration adequate: Yes Nausea and vomiting: No Pain level: 1 Mental status: Baseline
== END 2022-01-03 12:28 | disposition home or self-care (01) ==
PROVIDERS: PCP Family Medicine; Visit Provider Obstetrics & Gynecology
PROC: (CPT 58661; principal; 2022-01-03 07:50)
DX: N83.201 Unspecified ovarian cyst, right side (principal); N83.8 Other noninflammatory disorders of ovary, fallopian tube and broad ligament; Z87.891 Personal history of nicotine dependence; Z79.82 Long term (current) use of aspirin; F41.9 Anxiety disorder, unspecified; E78.5 Hyperlipidemia, unspecified
CPT/HCPCS: 58661; 80048; 85025; 86850; 86900; 87086; 88305; J1100; J1885; J2405; J2704; J2710; J3010; J3490; J7030

== ENCOUNTER 2022-02-09 10:37 | Outpatient (CLI) | payer MEDICARE, OTHER, SELFPAY ==
--- NOTE | 2022-02-09 10:45 | MM_ITS ---
WS: [id number] VIEWS: MLO and CC views both breasts. 3D digital tomosynthesis is also included in this exam. Comparison made with prior exam of 05/19/2010, 10/20/2011, 05/06/2014, 01/10/2016, 11/08/2017, 11/22/2020.. Findings: There was no sign of mass, architectural distortion or suspicious calcification in either breast. Sc attered fibroglandular densities MM/[place] [id number] Impression: BI-RADS: 2-Benign FOLLOW-UP: 1 Year Follow-up This mammogram was also analyzed by the Computer Aided Detection System [employer].
== END 2022-02-09 10:38 | disposition home or self-care (01) ==
LOC: RAD 10:38
PROVIDERS: PCP Family Medicine; Visit Provider Family Medicine
DX: Z12.31 Encounter for screening mammogram for malignant neoplasm of breast (principal)
CPT/HCPCS: 77063; 77067

== ENCOUNTER → 2022-06-22 08:31 | Outpatient (BNVA) | payer MEDICARE, OTHER, SELFPAY | PROVIDERS: PCP Family Medicine; Visit Provider Family Medicine | DX: Z51.81 Encounter for therapeutic drug level monitoring (principal); E78.5 Hyperlipidemia, unspecified; Z13.220 Encounter for screening for lipoid disorders; E03.9 Hypothyroidism, unspecified; F41.9 Anxiety disorder, unspecified; J34.2 Deviated nasal septum | CPT/HCPCS: 80053; 80061; 84439; 84443; 85025 ==

== ENCOUNTER → 2022-11-08 13:41 | Outpatient (BNVA) | payer MEDICARE, OTHER, SELFPAY | PROVIDERS: PCP Family Medicine; Visit Provider Internal Medicine Cardiovascular Disease | DX: R55 Syncope and collapse (principal) | CPT/HCPCS: 99214 ==

== ENCOUNTER → 2022-12-06 13:27 | Outpatient (BNVA) | payer MEDICARE, OTHER, SELFPAY | PROVIDERS: PCP Family Medicine; Visit Provider Dermatology | DX: L57.0 Actinic keratosis (principal); Z85.828 Personal history of other malignant neoplasm of skin; L82.1 Other seborrheic keratosis; L81.4 Other melanin hyperpigmentation; D18.01 Hemangioma of skin and subcutaneous tissue; L73.8 Other specified follicular disorders; L71.8 Other rosacea | CPT/HCPCS: 17000; 17003; 99214 ==

== ENCOUNTER → 2023-05-09 10:58 | Outpatient (BNVA) | payer MEDICARE, OTHER, SELFPAY | PROVIDERS: PCP Family Medicine; Visit Provider Nurse Practitioner Family | DX: L82.1 Other seborrheic keratosis (principal); L81.4 Other melanin hyperpigmentation; D18.01 Hemangioma of skin and subcutaneous tissue; L72.0 Epidermal cyst; Z08 Encounter for follow-up examination after completed treatment for malignant neoplasm; Z85.828 Personal history of other malignant neoplasm of skin | CPT/HCPCS: 17000; 99214 ==

== ENCOUNTER → 2023-05-24 09:15 | Outpatient (BNVA) | payer MEDICARE, OTHER, SELFPAY | PROVIDERS: PCP Family Medicine; Visit Provider Dermatology | DX: L72.0 Epidermal cyst (principal); L57.0 Actinic keratosis; Z85.828 Personal history of other malignant neoplasm of skin | CPT/HCPCS: 10060; 17000; 99213 ==

== ENCOUNTER → 2023-10-01 10:14 | Outpatient (BNVA) | payer MEDICARE, OTHER, SELFPAY | PROVIDERS: PCP Family Medicine; Visit Provider Nurse Practitioner Family | DX: L57.0 Actinic keratosis (principal); L82.0 Inflamed seborrheic keratosis; L81.4 Other melanin hyperpigmentation; D18.01 Hemangioma of skin and subcutaneous tissue; Z85.828 Personal history of other malignant neoplasm of skin | CPT/HCPCS: 17000; 17110; 99213 ==

== ENCOUNTER → 2024-05-15 11:17 | Outpatient (BNVA) | payer MEDICARE, OTHER, SELFPAY | PROVIDERS: PCP Family Medicine; Visit Provider Nurse Practitioner Family | DX: L81.4 Other melanin hyperpigmentation (principal); D18.01 Hemangioma of skin and subcutaneous tissue; L82.1 Other seborrheic keratosis; L23.9 Allergic contact dermatitis, unspecified cause; Z08 Encounter for follow-up examination after completed treatment for malignant neoplasm; Z85.828 Personal history of other malignant neoplasm of skin; L82.0 Inflamed seborrheic keratosis; L56.8 Other specified acute skin changes due to ultraviolet radiation | CPT/HCPCS: 17000; 17110; 99214 ==

== ENCOUNTER → 2024-06-16 11:05 | Outpatient (BNVA) | payer MEDICARE, OTHER, SELFPAY | PROVIDERS: PCP Family Medicine; Visit Provider Nurse Practitioner Family | DX: L81.4 Other melanin hyperpigmentation (principal); D18.01 Hemangioma of skin and subcutaneous tissue; L82.1 Other seborrheic keratosis; L23.9 Allergic contact dermatitis, unspecified cause; L71.8 Other rosacea; Z08 Encounter for follow-up examination after completed treatment for malignant neoplasm; Z85.828 Personal history of other malignant neoplasm of skin; Z78.9 Other specified health status; L53.8 Other specified erythematous conditions; L82.0 Inflamed seborrheic keratosis | CPT/HCPCS: 11102; 17000; 17110; 99214 ==

== ENCOUNTER 2024-12-14 12:05 | Emergency (ER) | payer MEDICARE, OTHER, SELFPAY ==
--- OUTSIDE RECORDS SUMMARY | 2024-12-14 12:12 | XMS_ITS | Patient Health Record ---
Author Organization [facility] Address [address] [place], [place] [id number] Care Team Providers Care Stage Technician Name Role Phone Axel Allan MD Primary Care Provider Trip Garcia MD, Arnaldo Unavailable [phone] Allergies Allergen (clinical drug ingredient) Drug/Non Drug Allergy documented on EMR Reaction Allergy Type Onset Date Status ragweed (uncoded) Unknown Allergy Ac tive Reason For Referral No Information Medications Medication SIG (Take, Route, Frequency, Duration) Notes Start Date End Date Status ibuprofen 200 mg 2 tabs po orally Q6H prn pain Active simvastatin 20 mg 1 tab orally once a day Active traZODone 100 mg 1 tab orally at bedtime Active fluticasone nasal 50 mcg/inh 1-2 sprays intranasally once a day Active aspirin 325 mg 2-3 tabs orally once a day Active cetirizine 10 mg 1 tab orally once a day, as needed Active citalopram 10 mg 1 tab orally once a day Active rOPINIRole 0.5 mg 1 tab orally 2 times a day, as needed for restless leg Active Social History Tobacco Use: Social History Observation Description Date Details (start date - stop date) Never Smoker NA - NA alcohol Question Answer Notes Did you have a drink containing alcohol in the p ast year? No Points 0 Interpretation Negative Tobacco use: Question Answer Notes : nonsmoker Problems Problem Type SNOMED Code ICD Code Onset Dates Problem Status W/U Status Risk Notes Problem Low back pain (501269468) Low back pain (M54.5) Active confirmed Problem Lumbosacral spondylosis without myelopathy (54478329) Spondylosis without myelopathy or radiculopathy, lumbar region (M47.816) Active confirmed Problem High risk drug monitoring status (462601938) intermediate (current) use of opiate analgesic (Z79.891) Active confirmed Problem Anxiety disorder (839266966) Other specified anxiety disorders (F41.8) Active confirmed Problem Sleep disorder (89650229) Other sleep disorders (G47.8) Active confirmed Problem Radiculopathy due to lumbar intervertebral disc disorder (195168969876199) Intervertebral disc disorders with radiculopathy, lumbar region (M51.16) Active confirmed Problem Long-term current use of drug therapy (350991649) Other filler leaf cutter long (current) drug therapy (Z79.899) Active confirmed Plan Of Treatment No Information Insurance Providers Payer Name Payer Address Payer Phone Subscriber Number Group Number Insured Name Patient Relationship to Insured Coverage Start Date Coverage End Date [employer] Medicare Part B Claims Department [address] [address] [place] [address] [id number] Eva Villavicencio Self - patient is the insured [employer] MEDICARE SUPPLEMENT [employer] [address] [address] [place] [address] [id number] Eva Villavicencio Self - patient is the insured Medical (General) History Medical History History ICD Code Low back pain and lumbar radiculopathy Cervical radiculopathy Fibromyalgia Scoliosis Osteoarthritis Insomnia Anxiety and depression Hearing loss on the left Hypercholesterolemia Resltess leg syndrome Abdominal pain Surgical History Surgery Date(Month/Year) Hysterectomy, performed in [place], 03/2002 Colonoscopy, 2005, 2016 Cataract surgery, right with lens implant performed in [place], Dr. Nolasco, [id number] Hospitalization History Reason Date(Month/Year)
[2024-12-14 12:15] VITALS: BP 108/67; PULSE 89; RESP 18; TEMP 36.9; O2SAT 97; BMI 17.4
--- NOTE | 2024-12-14 12:55 | CTR_ITS ---
PROCEDURE INFORMATION: Exam: CT Head Without Contrast Exam date and time: 12/14/2024 1:13 PM Age: 74 years old Clinical indication: Other: Hearing loss TECHNIQUE: Imaging protocol: Computed tomography of the head without contrast. Radiation optimization: All CT scans at this facility use at least one of these dose optimization techniques: automated exposure control; mA and/or kV adjustment per patient size (includes targeted exams where dose is matched to clinical indication); or iterative reconstruction. COMPARISON: CT head wo con* [id number] 08/05/2020 9:21 AM RADIATION DOSE METRICS: Total DLP (mGy-cm): 1028.02 FINDINGS: Brain: No midline shift or acute intracranial finding. Cortical atrophy is present. Cerebral ventricles: No ventriculomegaly. Paranasal sinuses: Visualized sinuses are unremarkable. No fluid levels. Mastoid air cells: Visualized mastoid air cells are well aerated. Bones: Unremarkable. No acute fracture. Soft tissues: Unremarkable. CT/CT head wo con* [id number] IMPRESSION: 1. No acute intracranial finding. 2. Cortical atrophy is present.
--- NOTE | 2024-12-14 12:56 | W.ED.GENADLT ---
HPI - General Adult General: Chief complaint: General Medical Stated complaint: trouble hearing Time Seen by Provider: 12/14/24 12:51 Source: patient Mode of arrival: ambulatory Limitations: no limitations History of Present Illness: 74-year-old female states she woke up this morning she has had some decreased hearing in her right ear. Patient is able to hear she states it just seems a little distorted. Denies any headache denies any weakness denies any slurred speech. Denies any worse improved factors. No dizziness no tinnitus Associated symptoms: Deny chest pain, dyspnea, headache(s), nausea, rash or vomiting Related Data Home Medications ?Medication ?Instructions ?Recorded ?Confirmed aspirin 81 mg tablet,delayed 81 mg PO DAILY 06/20/19 06/24/22 release (Adult Low Dose Aspirin) multivitamin 1 tab PO QAM 06/20/19 06/24/22 magnesium-potassium 40 mg-40 mg 40 cap PO DAILY 12/29/21 06/24/22 capsule omega 8-qya-sgc-fish oil 60 mg-90 1 cap PO DAILY 12/29/21 06/24/22 mg-500 mg capsule (Fish Oil) Previous Rx's ?Medication ?Instructions ?Recorded metronidazole 0.75 % topical gel 1 applic topical BID #45 grams 04/05/22 levothyroxine 50 mcg tablet See Rx Instructions .Route 04/24/24 .COMPLEX #90 tabs sertraline 50 mg tablet 50 mg PO Q24H #90 tabs 07/16/24 trazodone 100 mg tablet 100 mg PO .at bedtime #90 tabs 07/28/24 ropinirole 0.5 mg tablet 0.5 mg PO BID #180 tabs 10/13/24 Allergies Allergy/AdvReac Type Severity Reaction Status Date / Time No Known Allergies Allergy Verified 12/14/24 12:18 Review of Systems Const: Denies: fever(s), chills, body aches or change in appetite ENMT: Reports: change in hearing; Denies: throat pain or dental pain Card: Denies: chest pain Resp: Denies: dyspnea GI: Denies: abdominal pain, nausea, vomiting or diarrhea Musc: Denies: neck pain or back pain Skin/Breast: Denies: rash Neuro: Denies: headache(s) PFSH ED PFSH: Medical History Anxiety Chronic sinusitis Dyslipidemia Hearing loss Insomnia No pertinent past medical history neghx: htn, dm, thyroid, dvt/pe PCP: Dr. Allan Surgical History H/O bilateral salpingo-oophorectomy 12/2022 - with adhesiolysis - Dr Jacques History of eye surgery History of hysterectomy Family History Mother Diabetes Hypertension Sister Ovarian cancer Other CHF (congestive heart failure), NYHA class I Dementia Denies family history of Cervical cancer Colon cancer Prostate cancer Heart disease Hyperlipidemia Breast cancer Bleeding disorder Uterine cancer Thyroid disease Stroke Social History Smoking and tobacco/nicotine status: never used tobacco/nicotine Substance/Drug Use: never Physical Exam Const: COMMON NORMALS: no acute distress, patient oriented x3 and healthy appearing HENMT: COMMON NORMALS: normocephalic and atraumatic HEAD & SCALP: normocephalic and atraumatic OTHER: Cerumen impaction to right ear Eye: COMMON NORMALS: Equal, round and reactive pupils present and EOMs intact bilaterally PUPIL: Yes Equal, round and reactive pupils present Neck/C-Spine: COMMON NORMALS: full ROM and supple Chest: COMMONS NORMALS: normal inspection of the chest and normal palpation of entire chest wall Resp: COMMON NORMALS: normal respiratory effort, No retractions, No use of accessory muscles and clear to auscultation bilaterally AUSCULTATION: clear to auscultation bilaterally Cardio: COMMON NORMALS: regular rate, regular rhythm and No murmurs present (Cardio) RATE: regular rate RHYTHM: regular rhythm Extremity: COMMON NORMALS: normal to inspection and full ROM Neuro: COMMON NORMALS: patient oriented x3, moves all extremities and no focal motor deficits CRANIAL NERVES: Yes CN normal except as noted GAIT: Yes Normal gait present MOTOR EXAM: 5/5 motor strength present throughout Psych: COMMON NORMALS: mental status grossly normal, Normal thought process present and cooperative THOUGHT PROCESS: Normal thought process present Skin: COMMON NORMALS: no rashes or lesions noted and no wounds GENERAL SKIN EXAM: no rashes or lesions noted Course Vital Signs: Vital signs: Vital Signs Temperature 98.5 F 12/14/24 12:15 Pulse Rate 68 12/14/24 14:14 Respiratory Rate 18 12/14/24 12:15 Blood Pressure 106/66 12/14/24 14:14 Pulse Oximetry 95 12/14/24 14:14 Oxygen Delivery Me thod Room Air 12/14/24 12:15 MDM - General Adult Medical Decision Making Patient presents here with decreased hearing in her right ear she has cerumen impaction I did remove significant mount of cerumen she is to do mineral oil drops she states her hearing is improved we will get her follow-up with ENT as well. Medical Records I reviewed the patient's medical records. Lab Data Radiology Impressions Head CT 12/14/24 12:55 IMPRESSION: 1. No acute intracranial finding. 2. Cortical atrophy is present. All radiology interpretation(s) finalized by discharge Discharge Plan Discharge Patient Disposition: Home Clinical Impression: Decreased hearing Cerumen impaction Qualifiers: Laterality: right Qualified Code(s): H61.21 - Impacted cerumen, right ear Condition: Stable Prescriptions: No Action multivitamin Tablet 1 tab PO QAM aspirin [Adult Low Dose Aspirin] 81 mg tablet,delayed release (DR/EC) 81 mg PO DAILY omega 3-gnq-dul-fish oil [Fish Oil] 60-90-500 mg capsule 1 cap PO DAILY magnesium-potassium 40-40 mg capsule 40 cap PO DAILY metronidazole 0.75 % gel 1 applic topical BID Qty: 45 2RF Rx Instructions: Apply thin amount to entire face twice daily levothyroxine 50 mcg tablet See Rx Instructions .ROUTE .COMPLEX Qty: 90 3RF Dose Instruction: TAKE 1 TABLET BY MOUTH EVERY DAY Rx Instructions: TAKE 1 TABLET BY MOUTH EVERY DAY sertraline 50 mg tablet 50 mg PO Q24H Qty: 90 3RF trazodone 100 mg tablet 100 mg PO .at bedtime Qty: 90 3RF ropinirole 0.5 mg tablet 0.5 mg PO BID Qty: 180 3RF Discharge Orders: Discharge ED (Routine); Ordered 12/14/24 Ordered By: Tena Rothman Referrals: Antony Kumar MD [Physician, Ear, Nose, Throat] - 4-7 days Axel Allan MD [Primary Care Provider, Family Practice] - 4-7 days Discharge Diet: Advance as tolerated Discharge Activity: Resume usual activity Patient Instructions: Cerumen Impaction Print Language: Stateless Coding Level of Care Code ED Migratory Farm Hand for Ritika Silveira
[2024-12-14 14:14] VITALS: BP 106/66; PULSE 68; O2SAT 95
[2024-12-14 14:32] VITALS: BP 116/69; PULSE 68; O2SAT 96
--- NOTE | 2024-12-17 09:12 | DCPLANNER ---
Referral sent to ENR Dr. Kumar
== END 2024-12-14 14:33 | disposition home or self-care (01) ==
PROVIDERS: Emergency Provider Emergency Medicine; PCP Family Medicine
DX: H61.21 Impacted cerumen, right ear (principal); Z79.82 Long term (current) use of aspirin; E78.5 Hyperlipidemia, unspecified
CPT/HCPCS: 70450; 99284